=== PATIENT | female | born 1995 | race Caucasian/White ===

== ENCOUNTER 2017-08-30 13:22 | Emergency (ER) | payer OTHER ==
[~2017-08-30] VITALS: Ht 167.6 cm; Wt 78.6 kg
[2017-08-30 15:46] LABS: PLATELET COUNT 171 x10^3mcL (130-400); RED CELL DISTRIBUTION WIDTH 13.3 % (11.5-14.5)
[2017-08-30 15:48] LABS: BASOPHIL % 0 % (0-2)
[2017-08-30 15:54] LABS: CALCIUM 8.8 mg/dL (8.5-10.1); CARBON DIOXIDE 23.7 mmol/L (21-32); CHLORIDE SERUM 100 mmol/L (98-107); CREATININE SERUM 0.7 mg/dL (0.6-1.0); GFR1 > 60 mL/min; GLUCOSE SERUM 103 mg/dL (74-106); POTASSIUM SERUM 3.3 mmol/L (3.5-5.1); SODIUM SERUM 135 mmol/L (136-145)
[2017-08-30 15:59] LABS: ALBUMIN 3.8 g/dL (3.4-5.0); ALKALINE PHOSPHATASE 70 U/L (46-116); ALT/SGPT 59 U/L (14-59); AST/SGOT 34 U/L (15-37)
[2017-08-30 16:02] LABS: TOTAL PROTEIN, SERUM 8.7 g/dL (6.4-8.2)
[2017-08-30 16:17] LABS: UA SPECIFIC GRAVITY >=1.030 (1.005-1.035); microscopic required? YES; urine erythrocyte 2+ (NEGATIVE)
[2017-08-30 19:07] VITALS: BP 105/61
== END 2017-08-30 19:07 | disposition home or self-care (01) ==
LOC: ED 13:22
PROVIDERS: Emergency Medicine
DX: A09 Infectious gastroenteritis and colitis, unspecified (principal)
CPT/HCPCS: 87046; 87046-59; J2405; J3490; J7030

== ENCOUNTER 2021-02-08 17:47 | Emergency (ER) | payer OTHER ==
[~2021-02-08] VITALS: Ht 167.6 cm; Wt 76.2 kg
[2021-02-08 17:54] VITALS: Ht 167.6 cm; Wt 76.2 kg
[2021-02-08 19:18] LABS: BASOPHIL % 0.3 % (0.2-1.3); PLATELET COUNT 209 x10^3mcL (179-408); RED CELL DISTRIBUTION WIDTH 13.2 % (12.3-17.7)
[2021-02-08 19:24] LABS: CALCIUM 8.8 mg/dL (8.5-10.1); CARBON DIOXIDE 27.1 mmol/L (21-32); CHLORIDE SERUM 103 mmol/L (98-107); CREATININE SERUM 0.6 mg/dL (0.6-1.0); GFR1 > 60 mL/min; GLUCOSE SERUM 89 mg/dL (74-106); POTASSIUM SERUM 3.8 mmol/L (3.5-5.1); SODIUM SERUM 138 mmol/L (136-145)
[2021-02-08 19:29] LABS: ALBUMIN 3.7 g/dL (3.4-5.0); ALKALINE PHOSPHATASE 55 U/L (46-116); ALT/SGPT 27 U/L (14-59); AST/SGOT 17 U/L (15-37); BILIRUBIN TOTAL 0.1 mg/dL (0.20-1.00); TOTAL PROTEIN, SERUM 7.1 g/dL (6.4-8.2)
[2021-02-08] MEDS ORDERED: ONDANSETRON4 M3 PO (21:53)
[2021-02-08 22:30] VITALS: BP 107/68
== END 2021-02-08 22:31 | disposition home or self-care (01) ==
LOC: ED 17:47
PROVIDERS: Emergency Medicine
DX: R55 Syncope and collapse (principal); R11.0 Nausea; Z88.2 Allergy status to sulfonamides
CPT/HCPCS: 82962; J2405; J7030